=== PATIENT | female | born 1980 | race Caucasian/White ===

== ENCOUNTER 2016-09-06 07:23 | Inpatient (IN) | payer OTHER ==
[2016-09-06] MEDS ORDERED: Penicillin G Potassium IV* 5,000,000 UNITS in NS 0.9% 100 ML* 100 ML IVPB ONE (08:30)
[2016-09-06 08:42] LABS: Hematocrit 33 % (35-47); Hemoglobin 11.6 g/dl (12.0-16.0); Mean Corpuscular HGB Conc 35 g/dl (31-36); Mean Corpuscular Hemoglobin 29 pg (27-31); Mean Corpuscular Volume 84 fL (80-97); Mean Platelet Volume 9 um3 (7.4-10.4); Red Blood Count 3.97 10^6/ul (4.0-5.4); Red Cell Distribution Width 13 % (10.5-15); White Blood Count 5.6 10^3/ul (3.5-10.8)
[2016-09-06] MEDS ORDERED: Oxytocin in LR* 20 UNITS/1,000 ML BAG IVPB SCH ×2 (09:00→14:00)
[2016-09-06] MEDS ORDERED: OBEPIDURAL* 250 ML ONE (10:42)
[2016-09-06] MEDS ORDERED: Sodium Citrate/Citric Acid* 15 ML UDC PO PRN (11:15)
[2016-09-06] MEDS ORDERED: Phenylephrine IV* 40 MCG/ML 10 ML SYRINGE IV PUSH PRN ×2 (11:15)
[2016-09-06] MEDS ORDERED: OBEPIDURAL* 250 ML EPIDURAL SCH (12:00)
[2016-09-06] MEDS ORDERED: Penicillin G Potassium IV* 2,500,000 UNITS in NS 0.9% 100 ML* 100 ML IVPB SCH (12:30)
[2016-09-06] MEDS ORDERED: Witch Hazel PAD* JAR TOPICAL PRN (13:02)
[2016-09-06] MEDS ORDERED: Glycerin ADULT SUPP PR PRN (13:02)
[2016-09-06] MEDS ORDERED: Dibucaine 1% 28.35 GM TUBE PR PRN (13:02)
[2016-09-06] MEDS ORDERED: Acetaminophen TAB* 325 MG PO PRN (13:02)
[2016-09-06] MEDS: Docusate CAP* 100 MG PO SCH ×2 (14:52→20:52)
[2016-09-06] MEDS ORDERED: Simethicone TAB* 80 MG TAB.CHEW PO SCH (17:30)
[2016-09-06] MEDS: Ibuprofen TAB* 600 MG PO PRN ×2 (18:01→23:45)
[2016-09-07] MEDS: Ibuprofen TAB* 600 MG PO PRN ×3 (06:18→18:22)
[2016-09-07 06:55] LABS: Hematocrit 33 % (35-47); Hemoglobin 11.2 g/dl (12.0-16.0); Mean Corpuscular HGB Conc 34 g/dl (31-36); Mean Corpuscular Hemoglobin 29 pg (27-31); Mean Corpuscular Volume 85 fL (80-97); Mean Platelet Volume 9 um3 (7.4-10.4); Red Blood Count 3.86 10^6/ul (4.0-5.4); Red Cell Distribution Width 13 % (10.5-15); White Blood Count 7.5 10^3/ul (3.5-10.8)
[2016-09-07] MEDS: Docusate CAP* 100 MG PO SCH ×3 (08:20→21:54)
[2016-09-07] MEDS ORDERED: Ferrous Gluconate TAB* 324 MG TAB PO SCH (09:00)
[2016-09-08] MEDS: Ibuprofen TAB* 600 MG PO PRN ×2 (00:37→07:09)
[2016-09-08] MEDS: Docusate CAP* 100 MG PO SCH (08:50)
[2016-09-08 12:35] VITALS: BP 130/75
== END 2016-09-08 12:35 | disposition home or self-care (01) | DRG 560 ==
LOC: MCHOBOUT 07:23 → MCHOB 07:50
PROVIDERS: ADMIT Obstetrics & Gynecology; ATTEND Obstetrics & Gynecology
PROC: 10E0XZZ Delivery of Products of Conception, External Approach (ICD-10-PCS; principal; 2016-09-06)
PROC: 10907ZC Drainage of Amniotic Fluid, Therapeutic from Products of Conception, Via Natural or Artificial Opening (ICD-10-PCS; 2016-09-06)
PROC: 3E033VJ Introduction of Other Hormone into Peripheral Vein, Percutaneous Approach (ICD-10-PCS; 2016-09-06)
PROC: 0KQM0ZZ Repair Perineum Muscle, Open Approach (ICD-10-PCS; 2016-09-06)
DX: O48.0 Post-term pregnancy (principal); F33.9 Major depressive disorder, recurrent, unspecified; O70.1 Second degree perineal laceration during delivery; O99.824 Streptococcus B carrier state complicating childbirth; O99.344 Other mental disorders complicating childbirth; Z3A.40 40 weeks gestation of pregnancy; Z37.0 Single live birth
CPT/HCPCS: 36415; 85025; 85027; 86850; 86900; 86901; A9270-GY; J2540

== ENCOUNTER 2016-10-17 11:05 | Emergency (ER) | payer OTHER ==
[2016-10-17 11:30] VITALS: BP 102/69
[2016-10-17] MEDS ORDERED: Acetaminophen TAB* 325 MG PO ONE (11:37)
--- NOTE | 2016-10-17 12:07 | UC ---
Throat Pain/Nasal Ishan HPI - HPI Summary HPI Summary: Pt presetns with c/o sudden onset of sore throat, chills, fever and generalized malaise. Pt is 6 weeks . - History of Current Complaint Chief Complaint: UCRespiratory Stated Complaint: FEVER-102/101 ST,ACHES Time Seen by Provider: 10/17/16 11:36 Hx Obtained From: Patient Hx Last Menstrual Period: 11/2015 ?: No Onset/Duration: Sudden Onset, Lasting Days Severity: Mild Associated Signs & Symptoms: Positive: Dysphagia, Fever - Allergies/Home Medications Allergies/Adverse Reactions: Allergies Allergy/AdvReac Type Severity Reaction Status Date / Time No Known Allergies Allergy Verified 02/15/15 20:03 Home Medications: Home Medications Acetaminophen TAB* [Tylenol TAB*] 1,000 mg PO Q4H PRN 10/17/16 [History Confirmed 10/17/16] PMH/Surg Hx/FS Hx/Imm Hx Previously Healthy: Yes Endocrine History Of: Denies: Diabetes, Thyroid Disease Cardiovascular History Of: Denies: Cardiac Disorders, Hypertension Respiratory History Of: Denies: Asthma GI/ History Of: Denies: Ulcer Psychological History Of: Reports: Depression - Surgical History Surgical History: None - Family History Known Family History: Positive: Other - Positive FMH fro URI - Social History Alcohol Use: None Substance Use Type: None Smoking Status (MU): Never Smoked Tobacco - Immunization History Most Recent Influenza Vaccination: 06/09/16 Most Recent Tetanus Shot: 06/22/16 Most Recent Pneumonia Vaccination: n/a Review of Systems Constitutional: Fever, Chills, Fatigue Skin: Negative Eyes: Negative ENT: Sore Throat Respiratory: Negative Cardiovascular: Negative Gastrointestinal: Negative Genitourinary: Negative Motor: Negative Neurovascular: Negative Musculoskeletal: Myalgia Neurological: Negative Psychological: Negative All Other Systems Reviewed And Are Negative: Yes Physical Exam Triage Information Reviewed: Yes Appearance: Well-Appearing Vital Signs: Initial Vital Signs Temp 99.4 F 10/17/16 11:23 Pulse 104 10/17/16 11:23 Resp 16 10/17/16 11:23 BP 102/69 10/17/16 11:23 Pulse Ox 97 10/17/16 11:23 Vital Signs Reviewed: Yes Eye Exam: Normal ENT Exam: Other ENT: Positive: Pharyngeal erythema Dental Exam: Normal Neck exam: Normal Respiratory Exam: Normal Cardiovascular Exam: Normal Musculoskeletal Exam: Normal Neurological Exam: Normal Psychological Exam: Normal Skin Exam: Normal Throat Pain/Nasal Course/Dx - Course Course Of Treatment: I discussed with the pt the need to follwo up with her PCP. Pt is not . - Differential Dx/Diagnosis Differential Diagnosis/HQI/PQRI: Influenza, Other - strep throat Provider Diagnoses: strep throat Discharge - Discharge Plan Condition: Stable Disposition: HOME Prescriptions: Penicillin VK TAB 500 MG(NF) [Penicillin VK 500 mg Tab(NF)] 500 mg PO TID #30 tab Patient Education Materials: Strep Throat (ED) Referrals: Andrés Borja MD [Primary Care Provider] - Additional Instructions: Please follow up with your PCP or return to clinic.
== END 2016-10-17 12:37 | disposition home or self-care (01) ==
LOC: UCEAST 11:05
DX: O90.89 Other complications of the puerperium, not elsewhere classified (principal); J02.0 Streptococcal pharyngitis
CPT/HCPCS: 87651; 99212; A9270-GY; G0463

== ENCOUNTER 2017-02-19 17:43 | Emergency (ER) | payer OTHER ==
[2017-02-19 17:51] VITALS: BP 105/64
--- NOTE | 2017-02-19 17:56 | UC ---
Syncope/New Syncope HPI - HPI Summary HPI Summary: 36 year old female presents with complains of syncopal episode. I will send her to the ER to rule out stroke. - History Of Current Complaint Chief Complaint: UCHeadInjury Stated Complaint: PASSED OUT EARLIER, HEADACHE Time Seen by Provider: 02/19/17 17:52 Hx Last Menstrual Period: 01/14/17 - Allergies/Home Medications Allergies/Adverse Reactions: Allergies Allergy/AdvReac Type Severity Reaction Status Date / Time No Known Allergies Allergy Verified 02/19/17 17:47 Home Medications: Home Medications Escitalopram Oxalate [Lexapro 10 mg] 10 mg PO DAILY 02/19/17 [History Confirmed 02/19/17] PMH/Surg Hx/FS Hx/Imm Hx - Surgical History Surgical History: None - Family History Known Family History: Positive: Other - Positive FMH fro URI - Social History Alcohol Use: None Substance Use Type: None Smoking Status (MU): Never Smoked Tobacco - Immunization History Most Recent Influenza Vaccination: 06/09/16 Most Recent Tetanus Shot: 06/22/16 Most Recent Pneumonia Vaccination: n/a Review of Systems Constitutional: Negative Skin: Negative Eyes: Negative ENT: Negative Respiratory: Negative Cardiovascular: Negative Gastrointestinal: Negative Genitourinary: Negative Motor: Negative Neurovascular: Negative Musculoskeletal: Negative Neurological: Headache, Weakness Psychological: Negative All Other Systems Reviewed And Are Negative: Yes Physical Exam Triage Information Reviewed: Yes Vital Signs: Initial Vital Signs Temp 36.9 C 02/19/17 17:48 Pulse 71 02/19/17 17:48 Resp 14 02/19/17 17:48 BP 105/64 02/19/17 17:48 Pulse Ox 100 02/19/17 17:48 Eye Exam: Normal ENT Exam: Normal Dental Exam: Normal Neck exam: Normal Neck: Positive: 1 Respiratory Exam: Normal Cardiovascular Exam: Normal Abdominal Exam: Normal Musculoskeletal Exam: Normal Neurological Exam: Normal Psychological Exam: Normal Skin Exam: Normal Syncope Course/Dx - Differential Dx/Diagnosis Provider Diagnoses: SYNCOPE Discharge - Discharge Plan Condition: Guarded Disposition: AGAINST MEDICAL ADVICE Patient Education Materials: Syncope (GEN) Referrals: Andrés Borja MD [Primary Care Provider] -
== END 2017-02-19 18:20 | disposition left against medical advice (07) ==
LOC: UCEAST 17:43
DX: R55 Syncope and collapse (principal)
CPT/HCPCS: 93005; 99212; G0463

== ENCOUNTER 2017-02-19 18:37 | Emergency (ER) | payer OTHER ==
[2017-02-19] MEDS ORDERED: NS 0.9% 1000 ML* 1,000 ML IV ONE (20:45)
--- NOTE | 2017-02-19 21:03 | RAD ---
Indication: Syncope. CT of the brain was performed without IV contrast. Ventricular structures are midline. No midline shift is noted. The extra-axial spaces are unremarkable. There is no evidence of intracranial mass or hemorrhage. No other high or low density lesions are identified. Mastoid air cells and paranasal sinuses are otherwise unremarkable. IMPRESSION: There is no intracranial mass or hemorrhage noted.
[2017-02-19 21:36] LABS: Hematocrit 40 % (35-47); Hemoglobin 13.3 g/dl (12.0-16.0); Mean Corpuscular HGB Conc 33 g/dl (31-36); Mean Corpuscular Hemoglobin 29 pg (27-31); Mean Corpuscular Volume 87 fL (80-97); Mean Platelet Volume 8 um3 (7.4-10.4); Red Blood Count 4.65 10^6/ul (4.0-5.4); Red Cell Distribution Width 13 % (10.5-15); White Blood Count 7.4 10^3/ul (3.5-10.8)
[2017-02-19 21:37] LABS: Urine Bilirubin Negative (Negative); Urine Glucose Negative (Negative); Urine Nitrite Negative (Negative)
[2017-02-19 21:54] LABS: Albumin 4.2 g/dL (3.2-5.2); BUN/Creatinine Ratio 18.6 (8-20); EGFR African American 97.1 (>60); EGFR Non-African American 75.5 (>60); Globulin 2.8 g/dL (2-4); Potassium 3.8 mmol/L (3.5-5.0)
--- NOTE | 2017-02-19 22:06 | ED ---
Dmitry Pickens Rebecca, scribed for Agustin Coleman MD on 02/19/17 at 2042 . Syncope/Near Syncope - HPI Summary HPI Summary: Pt is a 36 y/o F who presents to ED s/p syncopal episode with positive LOC. Pt reports the episode occurred today at 1145. Syncope began while standing and drinking a soda, during which the soda "went down funky," feeling like indigestion. Reports she woke up on the kitchen floor. Positive head trauma. Reports brief disorientation after arousing, which resolved upon standing up. Sx aggravated by nothing, alleviated by spontaneous resolution. C/o mild, intermittent WU and fatigue s/p episode. Has not taken any medication to treat WU. Confirms she felt well prior to onset of sx and that feels alright now. No prior similar episodes. - History Of Current Complaint Chief Complaint: EDSyncope Time Seen by Provider: 02/19/17 20:35 Hx Obtained From: Patient Onset/Duration: Resolved Context: Loss Of Consciousness Activity At Onset: At Rest - Standing, drinking soda Associated Head Trauma: Yes Aggravating Factor(s): Nothing Alleviating Factor(s): Spontaneous Resolution Associated Signs And Symptoms: Headache - Mild, intermittent, Other - fatigue - Allergies/Home Medications Allergies/Adverse Reactions: Allergies Allergy/AdvReac Type Severity Reaction Status Date / Time No Known Allergies Allergy Verified 02/19/17 17:47 PMH/Surg Hx/FS Hx/Imm Hx Endocrine/Hematology History: Denies: Hx Diabetes, Hx Thyroid Disease Cardiovascular History: Denies: Hx Hypertension Respiratory History: Denies: Hx Asthma, Hx Chronic Obstructive Pulmonary Disease (COPD) GI History: Denies: Hx Ulcer Psychiatric History: Reports: Hx Depression Infectious Disease History: No Infectious Disease History: Denies: Hx Clostridium Difficile, Hx Hepatitis, Hx Human Immunodeficiency Virus (HIV), Hx of Known/Suspected MRSA, Hx Shingles, Hx Tuberculosis, Hx Known/ Suspected VRE, Hx Known/Suspected VRSA, History Other Infectious Disease, Traveled Outside the [place] in Last 30 Days - Family History Known Family History: Positive: Other - Positive FMHx of URI - Social History Alcohol Use: None Substance Use Type: Reports: None Smoking Status (MU): Never Smoked Tobacco Review of Systems Positive: Fatigue - s/p episode Positive: Headache - Mild, intermittent s/p episode, Syncope - Syncopal episode with positive LOC All Other Systems Reviewed And Are Negative: Yes Physical Exam Triage Information Reviewed: Yes Vital Signs On Initial Exam: Initial Vitals Temp Pulse Resp BP Pulse Ox 98.3 F 68 16 123/65 97 02/19/17 18:51 02/19/17 18:51 02/19/17 18:51 02/19/17 18:51 02/19/17 18:51 Vital Signs Reviewed: Yes Appearance: Positive: Well-Appearing, No Pain Distress Skin: Positive: Warm Head/Face: Positive: Normal Head/Face Inspection Eyes: Positive: EOMI, MANAV ENT: Positive: Hearing grossly normal Neck: Positive: Supple, Nontender Respiratory/Lung Sounds: Positive: Clear to Auscultation, Breath Sounds Present Cardiovascular: Positive: RRR Abdomen Description: Positive: Nontender, Soft Bowel Sounds: Positive: Present Musculoskeletal: Positive: Strength/ROM Intact Neurological: Positive: Sensory/Motor Intact, Alert, Oriented to Person Place, Time, Normal Gait Psychiatric: Positive: Affect/Mood Appropriate - Stambaugh Coma Scale Coma Scale Total: 15 Diagnostics - Vital Signs Vital Signs Temp Pulse Resp BP Pulse Ox 02/19/17 20:09 99.0 F 65 16 118/73 98 02/19/17 18:51 98.3 F 68 16 123/65 97 - Laboratory Lab Results: Lab Results 02/19/17 02/19/17 02/19/17 Range/Units 21:20 21:20 21:20 WBC 7.4 (3.5-10.8) 10^3/ul RBC 4.65 (4.0-5.4) 10^6/ul Hgb 13.3 (12.0-16.0) g/dl Hct 40 (35-47) % MCV 87 (80-97) fL MCH 29 (27-31) pg MCHC 33 (31-36) g/dl RDW 13 (10.5-15) % Plt Count 197 (150-450) 10^3/ul MPV 8 (7.4-10.4) um3 Neut % (Auto) 60.6 (38-83) % Lymph % (Auto) 30.6 (25-47) % [place] % (Auto) 6.2 (1-9) % Eos % (Auto) 2.0 (0-6) % Baso % (Auto) 0.6 (0-2) % Absolute Neuts (auto) 4.5 (1.5-7.7) 10^3/ul Absolute Lymphs (auto) 2.3 (1.0-4.8) 10^3/ul Absolute Monos (auto) 0.5 (0-0.8) 10^3/ul Absolute Eos (auto) 0.2 (0-0.6) 10^3/ul Absolute Basos (auto) 0 (0-0.2) 10^3/ul Absolute Nucleated RBC 0 10^3/ul Nucleated RBC % 0 Sodium 136 (133-145) mmol/L Potassium 3.8 (3.5-5.0) mmol/L Chloride 103 (101-111) mmol/L Carbon Dioxide 26 (22-32) mmol/L Anion Gap 7 (2-11) mmol/L BUN 16 (6-24) mg/dL Creatinine 0.86 (0.51-0.95) mg/dL Est GFR ( Amer) 97.1 (>60) Est GFR (Non-Af Amer) 75.5 (>60) BUN/Creatinine Ratio 18.6 (8-20) Glucose 83 (70-100) mg/dL Lactic Acid (0.5-2.0) mmol/L Calcium 9.0 (8.6-10.3) mg/dL Magnesium 2.0 (1.9-2.7) mg/dL Total Bilirubin 1.00 (0.2-1.0) mg/dL AST 18 (13-39) U/L ALT 11 (7-52) U/L Alkaline Phosphatase 41 (34-104) U/L Total Protein 7.0 (6.4-8.9) g/dL Albumin 4.2 (3.2-5.2) g/dL Globulin 2.8 (2-4) g/dL Albumin/Globulin Ratio 1.5 (1-3) Beta HCG, Quant 0.64 mIU/mL Urine Color Straw Urine Appearance Clear Urine pH 6.0 (5-9) Ur Specific Richardson 1.011 (1.010-1.030) Urine Protein Negative (Negative) Urine Ketones Negative (Negative) Urine Blood Negative (Negative) Urine Nitrate Negative (Negative) Urine Bilirubin Negative (Negative) Urine Urobilinogen Negative (Negative) Ur Leukocyte Esterase Negative (Negative) Urine Glucose Negative (Negative) 02/19/17 Range/Units 21:20 WBC (3.5-10.8) 10^3/ul RBC (4.0-5.4) 10^6/ul Hgb (12.0-16.0) g/dl Hct (35-47) % MCV (80-97) fL MCH (27-31) pg MCHC (31-36) g/dl RDW (10.5-15) % Plt Count (150-450) 10^3/ul MPV (7.4-10.4) um3 Neut % (Auto) (38-83) % Lymph % (Auto) (25-47) % [place] % (Auto) (1-9) % Eos % (Auto) (0-6) % Baso % (Auto) (0-2) % Absolute Neuts (auto) (1.5-7.7) 10^3/ul Absolute Lymphs (auto) (1.0-4.8) 10^3/ul Absolute Monos (auto) (0-0.8) 10^3/ul Absolute Eos (auto) (0-0.6) 10^3/ul Absolute Basos (auto) (0-0.2) 10^3/ul Absolute Nucleated RBC 10^3/ul Nucleated RBC % Sodium (133-145) mmol/L Potassium (3.5-5.0) mmol/L Chloride (101-111) mmol/L Carbon Dioxide (22-32) mmol/L Anion Gap (2-11) mmol/L BUN (6-24) mg/dL Creatinine (0.51-0.95) mg/dL Est GFR ( Amer) (>60) Est GFR (Non-Af Amer) (>60) BUN/Creatinine Ratio (8-20) Glucose (70-100) mg/dL Lactic Acid 1.1 (0.5-2.0) mmol/L Calcium (8.6-10.3) mg/dL Magnesium (1.9-2.7) mg/dL Total Bilirubin (0.2-1.0) mg/dL AST (13-39) U/L ALT (7-52) U/L Alkaline Phosphatase (34-104) U/L Total Protein (6.4-8.9) g/dL Albumin (3.2-5.2) g/dL Globulin (2-4) g/dL Albumin/Globulin Ratio (1-3) Beta HCG, Quant mIU/mL Urine Color Urine Appearance Urine pH (5-9) Ur Specific Richardson (1.010-1.030) Urine Protein (Negative) Urine Ketones (Negative) Urine Blood (Negative) Urine Nitrate (Negative) Urine Bilirubin (Negative) Urine Urobilinogen (Negative) Ur Leukocyte Esterase (Negative) Urine Glucose (Negative) Result Diagrams: 02/19/17 21:20 02/19/17 21:20 Lab Statement: Any lab studies that have been ordered have been reviewed, and results considered in the medical decision making process. - CT Brain CT CT Interpretation: No Acute Changes - There is no intracranial mass or hemorrhage noted. CT Interpretation Completed By: Radiologist - EKG 2038 Cardiac Rate: NL - 64 bpm EKG Rhythm: Sinus Rhythm EKG Interpretation: No STEMI Re-Evaluation - Re-Evaluation First Eval Re-Evaluation Time: 22:29 Change: Improved Comment: Discussed Brain CT and EKG results. Discussed D/C plan. Course/Dx Assessment/Plan: Pt is a 36 y/o F who presents to ED c/o intermittent mild WU and fatigue s/p syncopal episode with positive LOC at 1145 today. Syncope began while standing and drinking a soda, during which the soda "went down funky," feeling like indigestion. Reports she woke up on the floor. Positive head trauma. Reports brief disorientation after arousing, which resolved upon standing up. Sx aggravated by nothing, alleviated by spontaneous resolution. Has not taken any medication to treat WU. Confirms she felt well prior to onset of sx and that feels alright now. No prior similar episodes. EKG and Brain CT reveal no acute findings. Pt received Ns IV in the course of the ED. Pt will be D/C to home with Dx of syncope with a follow up with her PCP. She understands and agrees. Patient's medications reviewed this visit. - Diagnoses Provider Diagnoses: Syncope Discharge - Discharge Plan Condition: Stable Disposition: HOME Patient Education Materials: Syncope (ED) Referrals: Andrés Borja MD [Primary Care Provider] - 3 Days Additional Instructions: RETURN TO THE EMERGENCY DEPARTMENT FOR ANY NEW OR WORSENING SYMPTOMS. The documentation as recorded by the Dmitry banks Rebecca accurately reflects the service I personally performed and the decisions made by , Agustin Coleman MD.
[2017-02-19 22:49] VITALS: BP 117/75
== END 2017-02-19 22:52 | disposition home or self-care (01) ==
LOC: ED 18:37
DX: R55 Syncope and collapse (principal); R51 Headache; R53.83 Other fatigue
CPT/HCPCS: 36415; 70450; 80053; 81003; 83605; 83735; 84702; 85025; 93005; 99283